=== PATIENT | male | born 1975 | race Caucasian/White ===

== ENCOUNTER → 2021-03-26 | Outpatient (CLI) | payer MEDICAID, MEDICARE ==
[~2021-03-26] MED LIST: APAP325T4 PO; BACL1TAB9 PO; BENA25CA4 PO; BOTO10VL IM; CALC500C15 PO; CELE20TA PO; D31000TA2 PO; DOCU100C16 PO; GABA-283 PO; KEPP10002 PO; MOM30SS2 PO; OMEP40CA5 PO; PEPT262C2 PO; RISP-7 PO; VIMP150T PO; fiberlax PO
== END ==
LOC: M LABSMTC 12:25
PROVIDERS: ATTEND Anesthesiology
DX: Z01.818 Encounter for other preprocedural examination (principal); Z11.52 Encounter for screening for COVID-19

== ENCOUNTER 2021-03-31 08:45 | Day surgery (SDC) | payer MEDICARE, MEDICAID ==
[~2021-03-31] VITALS: Ht 134.6 cm; Wt 63.0 kg
[~2021-03-31 08:45] MED LIST changes: +GENTAMICIN 80 MG in IV 1 EA IV ONE; +LIDOCAINE 1% MDV 20ML VIAL SQ PRN; +LR 1,000 ML IV ONE; +VANCOMYCIN HCL 1,000 MG, VIAL MATE ADAPTER 1 EACH in NS 250 ML IV ONE; +ceFAZolin SOD 2 GM in IV 1 EA IV ONE
[2021-03-31] MEDS ORDERED: LEVO500T4 PO (09:30)
[2021-03-31] MEDS ORDERED: CONRAY-60 60% 50ML VIAL (Q9961) As Ordered ONE (09:58)
[2021-03-31] MEDS ORDERED: ROCURONIUM BROMIDE 50 MG/5 ML VIAL As Ordered ONE (10:55)
[2021-03-31] MEDS ORDERED: LIDOCAINE 2% 100MG/5ML SDV (FOR ANES.) As Ordered ONE (10:55)
[2021-03-31] MEDS ORDERED: dexameTHASONE 4 MG/ML 1ML VIAL (J1100 PER 1MG) As Ordered ONE (10:55)
[2021-03-31] MEDS ORDERED: SUGAMMADEX SODIUM 500 MG/5 ML VIAL (BRIDION) As Ordered ONE (10:55)
[2021-03-31] MEDS ORDERED: propofoL 200 MG/20 ML VIAL As Ordered ONE (10:55)
[2021-03-31] MEDS ORDERED: MIDAZOLAM INJ 2MG/2ML VIAL (J2250 PER 1MG) As Ordered ONE (10:55)
[2021-03-31] MEDS ORDERED: ONDANSETRON 4MG/2ML VIAL As Ordered ONE (10:55)
[2021-03-31] MEDS ORDERED: fentaNYL 100 MCG/2 ML INJECTION As Ordered ONE ×2 (10:55→14:17)
[2021-03-31] MEDS ORDERED: PHENYLephrine 500MCG 5ML (100MCG/ML) SYRINGE As Ordered ONE (11:00)
[2021-03-31] MEDS ORDERED: ACETAMINOPHEN 1000MG 100ML IV BTL (OFIRMEV) (J0131 PER 10MG) As Ordered ONE (11:45)
[2021-03-31] MEDS ORDERED: oxyCODONE 5MG TAB PO PRN (14:50)
[2021-03-31] MEDS ORDERED: fentaNYL 100 MCG/2 ML INJECTION IV PRN (14:50)
[2021-03-31] MEDS ORDERED: ONDANSETRON 4MG/2ML VIAL IV PRN (14:50)
[2021-03-31] MEDS ORDERED: LR 1,000 ML IV SCH (14:50)
[2021-03-31] MEDS ORDERED: ACETAMINOPHEN TAB 650MG DOSE (2X325MG) PO PRN (14:55)
[2021-03-31 16:10] VITALS: BP 121/74
== END 2021-03-31 16:36 | disposition home or self-care (01) ==
LOC: M SDC 08:45
PROVIDERS: ATTEND Urology
DX: N20.0 Calculus of kidney (principal); F79 Unspecified intellectual disabilities; R12 Heartburn; G40.909 Epilepsy, unspecified, not intractable, without status epilepticus; G80.9 Cerebral palsy, unspecified; U07.1 COVID-19; Z79.899 Other long term (current) drug therapy; Z88.1 Allergy status to other antibiotic agents; Z88.8 Allergy status to other drugs, medicaments and biological substances; Z99.3 Dependence on wheelchair
CPT/HCPCS: 52356; 74420; 82365; 88300; C1769; C2617; J0131; J1100; J2250; J2370; J2405; J3010; J3370; Q9961